=== PATIENT | male | born 2000 | race Caucasian/White ===

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

== ENCOUNTER 2020-12-30 11:08 | Emergency (ER) | payer BC ==
[2020-12-30 12:49] LABS: HEMOGLOBIN 14.6 gm/dl (14.0-17.5); RED BLOOD COUNT 4.57 M/UL (4.20-5.50); WHITE BLOOD COUNT 10.8 K/UL (4.5-11.0)
[2020-12-30 13:30] LABS: BUN/CREATININE RATIO 18 (0-10)
== END 2020-12-30 15:07 | disposition home or self-care (01) ==
LOC: ER1 11:08
DX: N20.0 Calculus of kidney (principal); R31.9 Hematuria, unspecified
CPT/HCPCS: 80053; 81001; 83690; 85025; 96374; 99284; J2405; J7030